=== PATIENT | male | born 1940 | race Caucasian/White ===

== ENCOUNTER → 2020-11-10 | Outpatient (CLI) | payer MEDICARE ==
[~2020-11-10] MED LIST: OMNIPAQUE 350 MG/ML, 100ML BOTTLE ONE
[2020-11-10 09:24] LABS: CREATININE 1.98 mg/dL (0.7-1.3)
== END | disposition home or self-care (01) ==
LOC: RAD 08:18
PROVIDERS: ATTEND Internal Medicine Gastroenterology
DX: C18.0 Malignant neoplasm of cecum (principal); K22.70 Barrett's esophagus without dysplasia; I25.10 Atherosclerotic heart disease of native coronary artery without angina pectoris; K44.9 Diaphragmatic hernia without obstruction or gangrene; I71.4 Abdominal aortic aneurysm, without rupture; K57.30 Diverticulosis of large intestine without perforation or abscess without bleeding; M51.36 Other intervertebral disc degeneration, lumbar region; N28.1 Cyst of kidney, acquired
CPT/HCPCS: 36415; 71260; 74177; 82565; Q9967

== ENCOUNTER 2020-12-13 07:17 | Inpatient (IN) | payer MEDICARE ==
[~2020-12-13] VITALS: Ht 180.3 cm; Wt 77.7 kg
[2020-12-13] MEDS ORDERED: [UNRECOGNIZED DRUG - REMARK] PO (08:24)
[2020-12-13] MEDS ORDERED: BENA20TA54 PO (08:24)
[2020-12-13 08:25] VITALS: BP 104/66
[2020-12-13] MEDS ORDERED: LACTATED RINGERS 1,000 ML IV SCH (08:30)
[2020-12-13] MEDS ORDERED: CHLORHEXIDINE 15 ML UDC PO ONE (08:30)
[2020-12-13] MEDS ORDERED: CHLORHEXIDINE 15 ML UDC ONE (08:40)
[2020-12-13] MEDS ORDERED: FENTANYL PF 250 MCG/5ML ONE (10:05)
[2020-12-13] MEDS ORDERED: BUPIVACAINE/PF 0.25% ONE ×2 (10:06)
[2020-12-13] MEDS ORDERED: ROCURONIUM 10MG/ML,5ML ONE (10:22)
[2020-12-13] MEDS ORDERED: NEOSTIGMINE 1 MG/ML, 10ML ONE (10:22)
[2020-12-13] MEDS ORDERED: GLYCOPYRROLATE 0.2MG/1ML, 5ML ONE (10:22)
[2020-12-13] MEDS ORDERED: PROPOFOL 10 MG/ML, 20ML ONE (10:22)
[2020-12-13] MEDS ORDERED: BUPIVACAINE/PF 0.5% ONE (10:45)
[2020-12-13] MEDS ORDERED: hydrALAzine 20 MG/ML, 1ML IV PRN (11:00)
[2020-12-13] MEDS ORDERED: morphine SULFATE 10 MG/ML, 1ML IVPush PRN (11:00)
[2020-12-13] MEDS ORDERED: ONDANSETRON 2MG/ML, 2ML IVPush PRN ×2 (11:00→13:00)
[2020-12-13] MEDS ORDERED: MEPERIDINE/PF 25MG/0.5ML IVPush PRN (11:00)
[2020-12-13] MEDS ORDERED: LABETALOL 5MG/ML, 20ML IV PRN (11:00)
[2020-12-13] MEDS ORDERED: OXYcodone 5 MG/5 ML ORAL.SOL UDC PO PRN (11:00)
[2020-12-13] MEDS ORDERED: VASOPRESSIN 20 UNIT/ML, 1ML ONE (11:26)
[2020-12-13] MEDS ORDERED: ACETAMINOPHEN 650 MG/20.3 ML UDC ONE (12:48)
[2020-12-13] MEDS ORDERED: FENTANYL PF 100 MCG/2ML ONE ×2 (12:48→13:35)
[2020-12-13] MEDS ORDERED: TRAZODONE 50MG TABLET PO PRN (13:00)
[2020-12-13] MEDS ORDERED: DIPHENHYDRAMINE 50 MG/ML, 1ML IVPush PRN (13:00)
[2020-12-13] MEDS ORDERED: D5%-0.45NACL+KCL 20MEQ 1,000 ML IV SCH (13:00)
[2020-12-13] MEDS ORDERED: DIPHENHYDRAMINE 25 MG CAPSULE PO PRN (13:00)
[2020-12-13] MEDS: ACETAMINOPHEN 500 MG TABLET PO SCH ×3 (13:00→23:18)
[2020-12-13] MEDS ORDERED: HYDROmorphone 1 MG/ML, 1ML INJ IVPush PRN (13:00)
[2020-12-13] MEDS ORDERED: LORazepam 2 MG/ML, 1ML IVPush PRN (13:00)
[2020-12-13] MEDS ORDERED: LORazepam 1MG TABLET PO PRN (13:00)
[2020-12-13] MEDS ORDERED: DEXAMETHASONE 4 MG/ML, 1ML IVPush PRN (13:00)
[2020-12-13] MEDS ORDERED: HALOPERIDOL 5 MG/ML IVPush PRN (13:00)
[2020-12-13] MEDS: FENTANYL PF 100 MCG/2ML IV PRN ×3 (13:02→13:52)
[2020-12-13] MEDS ORDERED: OXYcodone 5 MG/5 ML ORAL.SOL UDC ONE (13:07)
[2020-12-13] MEDS ORDERED: HYDROmorphone 2 MG/ML, 1ML ONE (13:07)
[2020-12-13] MEDS: HYDROmorphone 1 MG/ML, 1ML INJ IVPush PRN ×3 (13:15→13:25)
[2020-12-13] MEDS: ACETAMINOPHEN 100 ML IVPB SCH ×2 (17:16→23:00)
[2020-12-13 19:16] VITALS: BP 123/57
[2020-12-13] MEDS: OXYcodone IR 5MG TABLET PO PRN (20:12)
[2020-12-14 00:04] VITALS: BP 114/52
[2020-12-14] MEDS: CALCIUM CARBONATE 500 MG TAB.CHEW PO PRN ×2 (02:35→20:43)
[2020-12-14 03:27] VITALS: BP 114/56
[2020-12-14 03:32] LABS: BASOPHILS % (AUTO) 1 % (0-1); EOSINOPHILS % (AUTO) 1 % (1-7); LYMPHOCYTES % (AUTO) 26 % (22-44); MEAN CORPUSCULAR HEMOGLOBIN 28.6 pg (27.5-34.5); MEAN CORPUSCULAR HGB CONC 33.1 g/dL (33.2-36.2); MEAN PLATELET VOLUME 6.6 fL (7.4-10.4); MONOCYTES % (AUTO) 12 % (2-9); NEUTROPHILS % (AUTO) 60 % (42-75); PLATELET COUNT 428 x10^3/uL (130-400); RED BLOOD COUNT 2.91 x10^6/uL (4.38-5.82); RED CELL DISTRIBUTION WIDTH 14.9 % (9.4-14.8)
[2020-12-14 03:45] LABS: ALBUMIN 2.9 g/dL (3.4-5.0); ANION GAP 5 mmol/L (5-15); CALCIUM 7.9 mg/dL (8.5-10.1); CHLORIDE 105 mmol/L (98-107); CREATININE 2.21 mg/dL (0.7-1.3)
[2020-12-14 03:51] VITALS: BP 113/58
[2020-12-14] MEDS: ACETAMINOPHEN 100 ML IVPB SCH ×2 (05:00→11:00)
[2020-12-14] MEDS: ACETAMINOPHEN 500 MG TABLET PO SCH ×3 (05:39→19:20)
[2020-12-14 06:49] VITALS: BP 129/66
[2020-12-14] MEDS: ENOXAPARIN 40 MG/0.4 ML SQ SCH (09:42)
[2020-12-14] MEDS: TAMSULOSIN 0.4 MG CAP.ER.24H PO SCH (13:16)
[2020-12-14 15:10] VITALS: BP 147/80
[2020-12-14] MEDS: OXYcodone IR 5MG TABLET PO PRN (19:20)
[2020-12-14 19:23] VITALS: BP 144/73
[2020-12-15] MEDS: SODIUM CHLORIDE 0.9% 1,000 ML IV SCH ×2 (00:16→17:00)
[2020-12-15 01:15] VITALS: BP 92/61
[2020-12-15] MEDS: ACETAMINOPHEN 500 MG TABLET PO SCH ×4 (01:40→21:21)
[2020-12-15 03:27] LABS: BASOPHILS % (AUTO) 1 % (0-1); EOSINOPHILS % (AUTO) 1 % (1-7); LYMPHOCYTES % (AUTO) 21 % (22-44); MEAN CORPUSCULAR HEMOGLOBIN 28.4 pg (27.5-34.5); MEAN PLATELET VOLUME 7.4 fL (7.4-10.4); MONOCYTES % (AUTO) 8 % (2-9); NEUTROPHILS % (AUTO) 69 % (42-75); PLATELET COUNT 483 x10^3/uL (130-400); RED BLOOD COUNT 3.32 x10^6/uL (4.38-5.82); RED CELL DISTRIBUTION WIDTH 14.7 % (9.4-14.8)
[2020-12-15 03:40] LABS: ALBUMIN 3.3 g/dL (3.4-5.0); ANION GAP 8 mmol/L (5-15); CALCIUM 8.7 mg/dL (8.5-10.1); CHLORIDE 103 mmol/L (98-107); CREATININE 1.64 mg/dL (0.7-1.3)
[2020-12-15 04:04] VITALS: BP 135/60
[2020-12-15] MEDS: ENOXAPARIN 40 MG/0.4 ML SQ SCH (07:56)
[2020-12-15] MEDS: TAMSULOSIN 0.4 MG CAP.ER.24H PO SCH (07:56)
[2020-12-15 08:00] VITALS: BP 141/75
[2020-12-15 12:41] VITALS: BP 138/69
[2020-12-15] MEDS: CALCIUM CARBONATE 500 MG TAB.CHEW PO PRN (12:46)
[2020-12-15 19:40] VITALS: BP 146/69
[2020-12-16 00:42] VITALS: BP 144/70
[2020-12-16 03:06] LABS: BASOPHILS % (AUTO) 1 % (0-1); EOSINOPHILS % (AUTO) 1 % (1-7); LYMPHOCYTES % (AUTO) 21 % (22-44); MEAN CORPUSCULAR HEMOGLOBIN 28.6 pg (27.5-34.5); MEAN CORPUSCULAR HGB CONC 33.2 g/dL (33.2-36.2); MEAN PLATELET VOLUME 7.7 fL (7.4-10.4); MONOCYTES % (AUTO) 10 % (2-9); NEUTROPHILS % (AUTO) 67 % (42-75); PLATELET COUNT 461 x10^3/uL (130-400); RED CELL DISTRIBUTION WIDTH 15.1 % (9.4-14.8)
[2020-12-16 03:13] LABS: ALBUMIN 2.7 g/dL (3.4-5.0); ANION GAP 8 mmol/L (5-15); CALCIUM 8.2 mg/dL (8.5-10.1); CHLORIDE 106 mmol/L (98-107); CREATININE 1.29 mg/dL (0.7-1.3)
[2020-12-16] MEDS: ACETAMINOPHEN 500 MG TABLET PO SCH ×3 (03:30→15:30)
[2020-12-16] MEDS: SODIUM CHLORIDE 0.9% 1,000 ML IV SCH (06:20)
[2020-12-16 06:59] VITALS: BP 129/68
[2020-12-16] MEDS: TAMSULOSIN 0.4 MG CAP.ER.24H PO SCH (09:28)
[2020-12-16] MEDS: ENOXAPARIN 40 MG/0.4 ML SQ SCH (09:29)
[2020-12-16 12:55] VITALS: BP 107/55
[2020-12-16 16:19] VITALS: BP 146/74
== END 2020-12-16 16:41 | disposition home or self-care (01) | DRG 330 ==
LOC: ORIP 07:17 → 4NE 15:16
PROVIDERS: ADMIT Surgery; ATTEND Surgery
PROC: 0DBB4ZZ Excision of Ileum, Percutaneous Endoscopic Approach (ICD-10-PCS; 2020-12-13)
PROC: 0DTF4ZZ Resection of Right Large Intestine, Percutaneous Endoscopic Approach (ICD-10-PCS; principal; 2020-12-13 10:30)
DX: C18.2 Malignant neoplasm of ascending colon (principal); N17.9 Acute kidney failure, unspecified; R33.9 Retention of urine, unspecified
CPT/HCPCS: 36415; 80048; 82040; 85025; 88309; 93005; G0378; J0131; J1170; J1650; J2405; J2704; J2710; J3010; J1200; J3480; J7030; J7120